=== PATIENT | male | born 1995 | race African-American/Black ===

== ENCOUNTER 2020-02-27 19:44 | Emergency (ER) | payer MEDICAID, OTHER ==
[~2020-02-27] VITALS: Ht 162.6 cm; Wt 67.3 kg
[~2020-02-27 19:44] MED LIST: TRAZ100T OR; TRAZ150T OR
[2020-02-27] MEDS ORDERED: GI COCKTAIL 50ML BTL(HYOSCYAMINE/MAALOX/LIDOCAINE VISCOUS)(1:3:1) PO ONE (20:15)
[2020-02-27 20:36] LABS: BASO % 0.2 % (0.0-1.0); EOS % 0.3 % (0.0-3.0); HEMATOCRIT 43.1 % (42.0-52.0); HEMOGLOBIN 15.4 g/dl (13.5-17.5); LYMPH # 1.6 10^3/uL (1.5-5.0); LYMPH % 13.1 % (24.0-44.0); MEAN CORPUSCULAR HEMOGLOBIN 31.9 pg (27.0-33.0); MEAN CORPUSCULAR HGB CONC 35.7 g/dl (32.0-36.5); MEAN CORPUSCULAR VOLUME 89.2 fl (80.0-96.0); MONO # 1.2 10^3/uL (0.0-0.8); MONO % 10.1 % (0.0-5.0); NEUTROPHILS # 9.4 10^3/uL (1.5-8.5); PLATELET COUNT, AUTOMATED 293 10^3/uL (150-450); RED BLOOD COUNT 4.83 10^6/uL (4.30-6.10); WHITE BLOOD COUNT 12.3 10^3/uL (4.0-10.0)
[2020-02-27] MEDS ORDERED: diphenhydrAMINE 50MG/ML VIAL (J1200) IV STA (20:49)
[2020-02-27] MEDS ORDERED: ISOVUE-370 76% 100ML VIAL (Q9967) As Ordered ONE (20:52)
[2020-02-27 20:54] LABS: ERYTHROCYTE SEDIMENTATION RATE 5 mm/hr (0-15)
[2020-02-27] MEDS ORDERED: NS 1,000 ML IV ONE (21:00)
--- NOTE | 2020-02-27 21:23 | REPVR ---
PROCEDURE INFORMATION: Exam: CT Neck With Contrast Exam date and time: 02/27/2020 8:55 PM Age: 25 years old Clinical indication: Other: Throat swelling; Additional info: Throat swelling, muffled voice, elev wbc TECHNIQUE: Imaging protocol: Computed tomography images of the neck with intravenous contrast. Radiation optimization: All CT scans at this facility use at least one of these dose optimization techniques: automated exposure control; mA and/or kV adjustment per patient size (includes targeted exams where dose is matched to clinical indication); or iterative reconstruction. Contrast material: [id number]; Contrast volume: 75 ml; Contrast route: IV; COMPARISON: No relevant prior studies available. FINDINGS: Nasopharynx: Unremarkable. Oropharynx: Unremarkable. No significant tonsillar enlargement. Hypopharynx: Unremarkable. Larynx: Unremarkable. Normal epiglottis. Retropharyngeal space: Unremarkable. Submandibular/Parotid glands: Normal. Glands are normal in size. Thyroid: Normal. No enlarged or calcified nodules. Lymph nodes: Unremarkable. No lymphadenopathy. Trachea: Visualized trachea is unremarkable. Lungs: Unremarkable as visualized. Bones/joints: Unremarkable. No acute fracture. Soft tissues: Unremarkable. No significant soft tissue swelling. IMPRESSION: No acute findings. Electronically signed by: Carlos Burrows On 02/27/2020 21:22:51 PM
[2020-02-27] MEDS ORDERED: MAGICMW SSP (21:39)
[2020-02-27] MEDS ORDERED: TRIA1OI TOP (21:39)
[2020-02-27 21:45] VITALS: BP 144/83
== END 2020-02-27 21:49 | disposition home or self-care (01) ==
LOC: M ED 19:44
DX: K12.0 Recurrent oral aphthae (principal); R13.10 Dysphagia, unspecified; Z87.891 Personal history of nicotine dependence
CPT/HCPCS: 70491; 80047; 83605; 85025; 85652; 86140; 87880; 96361; 96374; 99284; J1200; Q9967

== ENCOUNTER 2021-03-20 10:35 | Emergency (ER) | payer OTHER ==
[~2021-03-20] VITALS: Ht 162.6 cm; Wt 70.5 kg
[~2021-03-20 10:35] MED LIST changes: +MAGICMW SSP; +TRIA1OI TOP
--- NOTE | 2021-03-20 12:02 | REP ---
INDICATION: read r 5th metacarpal fracture. COMPARISON: None. TECHNIQUE: AP, lateral, and oblique view of the right hand FINDINGS: There is a comminuted fracture at the head of the 5th metacarpal bone with volar angulation and overlying soft tissue swelling. IMPRESSION: Mildly comminuted angulated fracture at the head of the 5th metacarpal bone. <Electronically signed by Jozef Hester > 03/20/21 [id number]
[2021-03-20 12:46] VITALS: BP 122/70
== END 2021-03-20 12:48 | disposition home or self-care (01) ==
LOC: M ED 10:35
DX: S62.398A Other fracture of other metacarpal bone, initial encounter for closed fracture (principal); W22.8XXA Striking against or struck by other objects, initial encounter; Y92.9 Unspecified place or not applicable; Y93.89 Activity, other specified; Y99.9 Unspecified external cause status

== ENCOUNTER 2021-04-15 12:34 | Emergency (ER) | payer OTHER ==
[~2021-04-15] VITALS: Ht 162.6 cm; Wt 66.1 kg
[2021-04-15 12:35] VITALS: BP 155/88
== END 2021-04-15 20:00 | disposition left against medical advice (07) ==
LOC: M ED 12:34
DX: Z53.21 Procedure and treatment not carried out due to patient leaving prior to being seen by health care provider (principal)

== ENCOUNTER → 2021-06-04 | Outpatient (REF) | payer OTHER ==
[2021-06-04 21:53] LABS: GC DNA AMPLIFICATION NEGATIVE (NEGATIVE)
== END ==
LOC: M LAB REF 19:14
PROVIDERS: ATTEND Physician Assistant Medical
DX: Z20.2 Contact with and (suspected) exposure to infections with a predominantly sexual mode of transmission (principal)

== ENCOUNTER → 2023-12-13 | Outpatient (CLI) | payer BC, MEDICAID | LOC: M WUC 09:48 | PROVIDERS: ATTEND Physician Assistant | DX: R07.9 Chest pain, unspecified (principal); I70.0 Atherosclerosis of aorta; M41.85 Other forms of scoliosis, thoracolumbar region ==

== ENCOUNTER → 2024-05-09 | Outpatient (CLI) | payer BC | LOC: M OUTALCOH 09:08 | PROVIDERS: ATTEND Psychiatry & Neurology Psychiatry | DX: Z03.89 Encounter for observation for other suspected diseases and conditions ruled out (principal) ==

== ENCOUNTER 2024-05-28 11:00 | Outpatient (RCR) | payer BC | END 2024-06-18 | LOC: M OUTALCOH 11:00 | PROVIDERS: ATTEND Psychiatry & Neurology Psychiatry | DX: F15.10 Other stimulant abuse, uncomplicated (principal); Z72.0 Tobacco use ==

== ENCOUNTER → 2024-10-20 | Outpatient (CLI) | payer BC | LOC: M OUTALCOH 12:57 | PROVIDERS: ATTEND Psychiatry & Neurology Psychiatry | DX: F15.10 Other stimulant abuse, uncomplicated (principal); Z72.0 Tobacco use ==

== ENCOUNTER 2024-11-11 09:00 | Outpatient (RCR) | payer BC | END 2024-11-18 | LOC: M OUTALCOH 09:00 | PROVIDERS: ATTEND Psychiatry & Neurology Psychiatry | DX: F15.10 Other stimulant abuse, uncomplicated (principal); Z72.0 Tobacco use ==

== ENCOUNTER 2024-12-18 09:00 | Outpatient (RCR) | payer BC | END 2024-12-19 | LOC: M OUTALCOH 09:00 | PROVIDERS: ATTEND Psychiatry & Neurology Psychiatry | DX: F15.10 Other stimulant abuse, uncomplicated (principal); Z72.0 Tobacco use ==

== ENCOUNTER 2024-12-30 09:00 | Outpatient (RCR) | payer BC | END 2025-01-16 | LOC: M OUTALCOH 09:00 | PROVIDERS: ATTEND Psychiatry & Neurology Psychiatry | DX: F15.10 Other stimulant abuse, uncomplicated (principal); Z72.0 Tobacco use ==

== ENCOUNTER 2025-02-13 15:00 | Outpatient (RCR) | payer BC | END 2025-02-16 | LOC: M OUTALCOH 15:00 | PROVIDERS: ATTEND Psychiatry & Neurology Psychiatry | DX: F15.10 Other stimulant abuse, uncomplicated (principal); Z72.0 Tobacco use ==

== ENCOUNTER 2025-03-17 09:59 | Outpatient (RCR) | payer BC | END 2025-03-18 | LOC: M OUTALCOH 09:59 | PROVIDERS: ATTEND Psychiatry & Neurology Psychiatry | DX: F15.10 Other stimulant abuse, uncomplicated (principal); Z72.0 Tobacco use ==